=== PATIENT | female | born 1940 | race Caucasian/White ===

== ENCOUNTER 2025-04-23 10:34 | Emergency (ER) | payer MEDICARE, OTHER, SELFPAY ==
[2025-04-23 10:37] VITALS: BP 158/83; PULSE 82; RESP 20; TEMP 36.3; O2SAT 95; BMI 27.5
--- NOTE | 2025-04-23 10:48 | ED.FALL ---
HPI - Fall General Time Seen by Provider: 10:48 Date Seen: 04/23/25 Chief Complaint: Fall/Minor Trauma Stated Complaint: fell on Sat- having pain on right side Time Seen by Provider: 04/23/25 10:36 Source: patient and RN notes reviewed Mode of arrival: ambulatory Limitations: no limitations History of Present Illness HPI Narrative: This 84-year-old female is coming to the ER of her own accord with complaint of right chest wall pain. She has very poor balance, has done physical therapy. She states her physical therapist actually lives down the road from her and will check on her couple times a week. She fell on Wednesday, she actually notes she fell twice. Once she tripped, her foot was out the side and got caught. The 2nd time she fell as when she injured herself, she was leaning forward to put something back and lost her balance, she fell on the vacuum on her right side. She has been taking Tylenol, it hurts some with breathing, definitely hurts with movement. She is not short of breath. She is anticoagulated with warfarin and is on Dilantin as well. States she can not take NSAIDs. She has no headache, did not hit her head, no neck or back pain. No abdominal pain. She has no pain in her extremities. It is simply the right chest wall pain that is hurting her. Related Data Home Medications ?Medication ?Instructions ?Recorded ?Confirmed Dilantin 04/23/25 Maxzide 04/23/25 atorvastatin 04/23/25 losartan 04/23/25 potassium 04/23/25 warfarin 04/23/25 Previous Rx's ?Medication ?Instructions ?Recorded oxycodone 5 mg tablet 2.5 mg (1/2 x 5 mg) PO QHS PRN 04/23/25 pain #7 tabs Allergies Allergy/AdvReac Type Severity Reaction Status Date / Time prochlorperazine (From Allergy Severe Verified 04/23/25 10:43 Compazine) Review of Systems Status of ROS: Reports: 6 or more systems reviewed and unremarkable except as noted in History and below [facility] PFS Social History Smoking Status: Never smoker How often do you have a drink containing alcohol: never How often do you have six or more drinks on one occasion: Never AUDIT-C Alcohol total score: 0 Non-prescribed substance use: denies use Exam Const: Vital Signs, click to edit/add: Vital Signs - 24 hr 04/23/25 10:37 04/23/25 11:28 04/23/25 13:08 Temperature 97.3 F L Pulse Rate 80 Pulse Rate [Pulse Oximeter] 82 Respiratory Rate 20 16 Blood Pressure 140/72 H Blood Pressure [Ri ght Upper Arm] 158/83 H Pulse Oximetry 95 92 95 Oxygen Delivery Me thod Room Air Room Air Brian is an 84-year-old female that is alert, interactive, no apparent distress. She is well-kept, sitting in chair. Pupils are equal round reactive, sclera clear, face and head atraumatic. She is nontender over her cervical spine as well as the entirety of her spine. No traumatic change or bruising noted on her back. She is tender over the right posterolateral chest wall but no crepitus or step-off noted, again no traumatic change. Lungs are clear, good air entry, no wheezing crackles, no tachypnea, no accessory muscle use. CV is regular, no murmur noted, normal S1-S2. She is nontender over the clavicles and shoulders, no pain with mobilization of her upper extremities. Abdomen is soft, nontender, nondistended, no masses organomegaly appreciated. She has no complaints of pain in her pelvis or lower extremities. Documenting provider has reviewed patient's vital signs: yes Course Course ED Course: This is an 84-year-old female anticoagulated with Coumadin with right chest wall pain. The concern for rib fractures is certainly present. Will be doing CT with IV contrast, will check baseline labs including an INR and CBC. She has potential for significant trauma based on her age in anticoagulation. The fall was 2 days ago and thus makes severe trauma unlikely. Still would like to be aware if there is any bleeding or chest wall contusion, certainly suspect rib or rib fractures. She has no spinal complaints and is nontender on palpation of her spine. She will be monitored on pulse oximetry while here. May need to address further pain complaints and will do so guiding by a imaging and lab evaluation. Reevaluation(s) Time of Reevaluation #1: 12:06 Reevaluation #1: Patient complaining of pain, will try 2.5 mg oral oxycodone as a trial does and see if patient tolerates this, see if this is enough to help with pain. Want to minimize side effects but treat pain. Time of Reevaluation #2: 13:15 Reevaluation #2: Did bring patient CT report in, we discussed that there were no traumatic changes noted. There were incidental findings but he did not get a chance to talk to her at this point, was called out to talk to the neurologist regarding a different patient. The oxycodone has helped her. She is taking max dose Tylenol that she can, cannot take NSAIDs. Reviewed with her that I typically do not give narcotics for non fracture type injury but she is limited. She is wondering if she can just take a small dose of the oxycodone at bedtime. She seems to be quite lucid and has gotten some relief from the 2.5 mg of oxycodone. She is comfortable doing Tylenol during the day, will send in a few tablets of oxycodone at night. Did discuss the risks and benefits and certainly reviewed increased fall risk. Her is present at time of discharge. 1:30 p.m.: Did go back to talk to them after I finished my phone call with the neurologist for another patient. She had a question about some of the lung calcification, we discussed this was likely from prior infections. Was not in the vessels, was small punctate calcifications in the lungs. She has had her thyroid ultrasound did for the nodule before, she was aware of the hiatal hernia, does not seem to be symptomatic from the hiatal hernia on questioning. She will take this CT report back to her primary to make sure that there is no further follow-up needed for the thyroid. Vital Signs Vital signs: Initial Vital Signs Temperature 97.3 F L 04/23/25 10:37 Temperature Source Temporal Artery Scan 04/23/25 10:37 Pulse Rate 82 04/23/25 10:37 Respiratory Rate 20 04/23/25 10:37 Blood Pressure 158/83 H 04/23/25 10:37 Blood Pressure Mean 108 H 04/23/25 10:37 Blood Pressure Position Sitting 04/23/25 10:37 Pulse Oximetry 95 04/23/25 10:37 Oxygen Delivery Method Room Air 04/23/25 10:37 Vital Signs Temperature 97.3 F L 04/23/25 10:37 Pulse Rate 82 04/23/25 10:37 Respiratory Rate 20 04/23/25 10:37 Blood Pressure 158/83 H 04/23/25 10:37 Pulse Oximetry 95 04/23/25 10:37 Oxygen Delivery Method Room Air 04/23/25 10:37 Temperature 97.3 F L 04/23/25 10:37 Pulse Rate 80 04/23/25 13:08 Respiratory Rate 16 04/23/25 13:08 Blood Pressure 140/72 H 04/23/25 13:08 Pulse Oximetry 95 04/23/25 13:08 Oxygen Delivery Method Room Air 04/23/25 13:08 Medications Administered Medications: Discontinued Medications Generic Name Dose Route Start Last Admin Trade Name Freq PRN Reason Stop Dose Admin Oxycodone HCl 2.5 mg 04/23/25 12:05 04/23/25 12:24 Oxycodone 5 Mg Tablet PO 04/23/25 12:06 2.5 mg ONCE ONE Administration - Fall Lab Data Attestation: I reviewed the patient's lab results. Labs: Lab Results 04/23/25 04/23/25 Range/Units 10:54 11:20 WBC 5.74 (4.50-11.00) K/uL RBC 4.93 (4.00-5.20) m/uL Hgb 15.8 (12.0-16.0) gm/dL Hct 46.3 (33.0-51.0) % MCV 94 (80-100) fL MCH 32 (26-34) pg MCHC 34 (32-36) gm/dL RDW Coeff of Mady 12.6 (11.5-15.5) % Plt Count 202 (140-440) K/uL Neut % (Auto) 60.0 (42.0-72.0) % Lymph % (Auto) 27.2 (20-44) % [place] % (Auto) 10.6 (0.0-11.0) % Eos % (Auto) 1.7 (0.0-7.0) % Baso % (Auto) 0.3 (0.0-3.0) % Neut # (Auto) 3.44 (1.7-7.0) K/uL Lymph # (Auto) 1.56 (0.90-2.90) K/uL [place] # (Auto) 0.60 (0.00-0.90) K/UL Eos # (Auto) 0.10 (0.00-0.50) K/uL Baso # (Auto) 0.02 (0.00-0.30) K/uL Abs Immat Gran (auto) 0.01 (0.00-0.30) K/uL Imm/Tot Granulo (auto) 0.2 % INR 1.72 H (0.91-1.10) Sodium 134 L (135-149) mmol/L Potassium 3.6 (3.6-5.1) mmol/L Chloride 100 (96-114) mmol/L Carbon Dioxide 27 (20-32) mmol/L Anion Gap 7 (7-15) mEq/L BUN 12 (7-30) mg/dL Creatinine 0.6 (0.5-1.5) mg/dL Estimated Creat Clear 36.81 Estimated GFR 89 ml/min Glucose 125 H (60-115) mg/dL Calcium 9.4 (8.4-10.6) mg/dL Total Bilirubin 0.4 (0.1-1.5) mg/dL AST 33 (12-35) U/L ALT 35 (4-35) U/L Alkaline Phosphatase 101 (40-150) U/L Total Protein 8.0 (6.0-8.3) g/dL Albumin 4.2 (3.3-5.0) g/dL POC Creatinine 0.7 (0.6-1.3) mg/dl Imaging Data CT scan - chest: Attestation: I have reviewed the pertinent imaging results. Radiologist's impression: Patient: BRIAN MACHADO Facility:?[facility] Patient ID:?[id number] Site Patient ID:?[id number]. Site :?[id number] Study:?CT-Chest w/ 75cc [id number]/11/2025 12:18:29 PM Ordering Physician:Clive Jones Final Report: INDICATION: Chest wall pain TECHNIQUE: CT chest with 75 mL Isovue 370 IV contrast. COMPARISON: None. FINDINGS: Lungs and pleura: Innumerable punctate calcifications throughout the periphery of both lungs most pronounced in lower lobes, likely sequelae of prior insult. No suspicious nodules. Curvilinear atelectasis in the dependent lower lobes. No focal consolidation, pleural effusion, or pneumothorax. Heart and vasculature: Heart size is normal. Thoracic aorta and pulmonary artery are normal in caliber. Lymph nodes/mediastinum: No enlarged lymph nodes by size criteria. Large hiatal hernia. Chest wall: No masses. Lower neck: Right thyroid lobe nodule measuring up to 1.6 cm (2:10) with peripheral calcification. Upper abdomen: Unremarkable. No acute or significant abnormality. Bones: No aggressive osseous lesions. [id number] degenerative changes of the spine. IMPRESSION: 1. No acute or significant CT abnormality to explain the queried chest wall pain. 2. Right thyroid lobe nodule measuring up to 1.6 cm. Recommend nonemergent thyroid ultrasound if not already performed. 3. Large hiatal hernia. Please note that all CT scans at this facility use dose modulation, iterative reconstruction, and/or weight-based dosing when appropriate to reduce radiation dose to as low as reasonably achievable. Dictated by Oliver Castillo MD @ 04/23/2025 12:45:40 PM (Electronic Signature) Discharge Plan Discharge Clinical Impression: Right-sided chest wall pain Fall Qualifiers: Encounter type: initial encounter Qualified Code(s): W19.XXXA - Unspecified fall, initial encounter Patient Disposition: Home, Self-Care Condition: Stable Instructions: Fall Prevention for Older Adults (ED), Chest Wall Pain (ED) Additional Instructions: INR/protime today was 1.72. Please contact your clinic or Coumadin nurse to give them this value, they can give you further recommendations for your medication dosing. I request that you follow-up with your primary care provider within the next week, bring CT report with. You will need possible further evaluation if your thyroid has never been ultrasounded before, please give the CT report to your primary care provider. Continue with Tylenol per your dosing that you are safe to take per your primary care provider. I have written for a few tablets of oxycodone to be used at bedtime to help you sleep. Your risk for falls does increase their radically with use of narcotics, get up carefully if you have 2 in the night after using this. Narcotics can also be constipating, may need to use MiraLax and or senna to control bowels while on the narcotics. Activity Level: Activity as Tolerated Prescriptions: New oxycodone 5 mg tablet 2.5 mg PO QHS PRN (Reason: pain) Qty: 7 0RF No Action warfarin Dilantin losartan Maxzide potassium atorvastatin Follow Up/Referrals: Provider,Not a Local [Primary Care Provider, Family Practice] Stand Alone Forms: MyHealth Info Instructions
--- NOTE | 2025-04-23 10:54 | CRLHL7_ITS ---
For Patients: As a result of the Century Cures Act, medical imaging exams and procedure reports are released immediately into your electronic medical record. You may view this report before your referring provider. If you have questions, please contact your health care provider. INDICATION: Chest wall pain TECHNIQUE: CT chest with 75 mL Isovue 370 IV contrast. COMPARISON: None. FINDINGS: Lungs and pleura: Innumerable punctate calcifications throughout the periphery of both lungs most pronounced in lower lobes, likely sequelae of prior insult. No suspicious nodules. Curvilinear atelectasis in the dependent lower lobes. No focal consolidation, pleural effusion, or pneumothorax. Heart and vasculature: Heart size is normal. Thoracic aorta and pulmonary artery are normal in caliber. Lymph nodes/mediastinum: No enlarged lymph nodes by size criteria. Large hiatal hernia. Chest wall: No masses. Lower neck: Right thyroid lobe nodule measuring up to 1.6 cm (2:10) with peripheral calcification. Upper abdomen: Unremarkable. No acute or significant abnormality. Bones: No aggressive osseous lesions. [id number] degenerative changes of the spine. IMPRESSION: 1. No acute or significant CT abnormality to explain the queried chest wall pain. 2. Right thyroid lobe nodule measuring up to 1.6 cm. Recommend nonemergent thyroid ultrasound if not already performed. 3. Large hiatal hernia. Please note that all CT scans at this facility use dose modulation, iterative reconstruction, and/or weight-based dosing when appropriate to reduce radiation dose to as low as reasonably achievable. Dictated by Oliver Castillo MD @ 04/23/2025 12:45:40 PM (Electronically Signed)
[2025-04-23 11:28] VITALS: O2SAT 92
[2025-04-23 11:33] LABS: Creatinine, Point-of-Care* 0.7 mg/dl (0.6-1.3)
[2025-04-23 11:36] LABS: Hematocrit 46.3 % (33.0-51.0); Hemoglobin* 15.8 gm/dL (12.0-16.0); Immature Granulocytes Abs Auto 0.01 K/uL (0.00-0.30); Immature Granulocytes Pct Auto 0.2 %; Lymphocytes Absolute Auto 1.56 K/uL (0.90-2.90); Mean Corpuscular HGB Conc 34 gm/dL (32-36); Mean Corpuscular Hemoglobin 32 pg (26-34); Mean Corpuscular Volume 94 fL (80-100); RDW Coefficient of Variation % 12.6 % (11.5-15.5); Red Blood Count 4.93 m/uL (4.00-5.20); White Blood Count* 5.74 K/uL (4.50-11.00)
[2025-04-23 11:38] LABS: Slide Review Reflex No
[2025-04-23 11:42] LABS: Albumin* 4.2 g/dL (3.3-5.0); Chloride* 100 mmol/L (96-114)
[2025-04-23 11:43] LABS: Potassium* 3.6 mmol/L (3.6-5.1); Sodium* 134 mmol/L (135-149)
[2025-04-23 11:45] LABS: Alanine Aminotransferase* 35 U/L (4-35); Alkaline Phosphatase* 101 U/L (40-150); Anion Gap 7 mEq/L (7-15); Aspartate Amino Transferase* 33 U/L (12-35); Bilirubin Total* 0.4 mg/dL (0.1-1.5); Blood Urea Nitrogen* 12 mg/dL (7-30); Carbon Dioxide* 27 mmol/L (20-32); Creatinine* 0.6 mg/dL (0.5-1.5); Est. Creatinine Clearance* 36.81; Estimated Glomerular Filt Rate 89 ml/min; INR 1.72 (0.91-1.10); Prothrombin Time 21.2 Seconds; Total Protein* 8.0 g/dL (6.0-8.3)
[2025-04-23 11:46] LABS: Calcium* 9.4 mg/dL (8.4-10.6); Glucose* 125 mg/dL (60-115)
--- OUTSIDE RECORDS SUMMARY | 2025-04-23 12:03 | XMS_ITS | Clinical Summary ---
Author Organization [facility] [facility] Address [address] [place] [id number] Care Team Providers Care Infantry Officer Name Role Phone Ruth Gayle Primary Care Provider [phone] [facility], [place] Unavailable Allergies Active Allergy Reactions Criticality Noted Date Comments Atenolol *Unknown - Pt Doesn' t Remember 05/21/2006 Pt can't take with Dilantin Chlorpromazine Throat Swelling/Closing 05/21/20 06 Thorazine Prochlorperazine Throat Swelling/Closing 2005 Lisinopril Throat Swelling/Closing 05/21/2006 Medications cholecalciferol (VITAMIN D) 1,000 unit tablet Take 1,000 Units by mouth once daily. 0 014 Active vit B vmvj-E-SU-iron- vit E 500 mg-400 mcg- 18 mg iron tabIndications: Cerebral artery occlusion with cerebral infarction (HC) Take 1-2 tablets by mouth once daily. 0 015 Active loperamide (IMODIUM A-D) 2 mg capsule Take 4mg by mouth with 1st loose stool, then 2mg with each subsequent loose stool. Max 16 mg in 24 hrs Active hydrocortisone 2.5% creamIndication s:Hemorrhoids, external Apply topically to affected area(s) 2 times daily. 90 g 021 Active lidocaine 5 % topical patchIndication s:Left-sided chest wall pain Apply to intact skin to cover most painful area for max 12hr per 24hr period. 30 Patch 023 Active Graduated Compression StockingsIndica tions:Intermitt ent claudication,Pe jaci edema For personal use. Length: calf Strength: 16-20 mmHg Circumference in cm: to be measured 2 Packet 024 Active alendronate (FOSAMAX) 70 mg tabletIndicatio ns:Osteoporosis , unspecified osteoporosis type, unspecified pathological fracture presence TAKE 1 TABLET ONCE A WEEK IN THE MORNING ON AN EMPTY STOMACH WITH FULL GLASS OF WATER. DO NOT LIE DOWN FOR 1 HOUR 13 Tablet 1 025 Active triamterene-hyd rochlorothiazid e, 37.5-25 mg, (MAXZIDE-25) 37.5-25 mg tabletIndicatio ns:Essential hypertension Take 1 Tablet by mouth once daily in the morning. 90 Tablet 3 025 Active Dilantin Extended 100 mg ER capsuleIndicati ons:Seizure disorder (HC) TAKE 2 CAPSULES ONCE DAILY 180 Capsule 1 025 Active losartan (COZAAR) 50 mg tabletIndicatio ns:Essential hypertension Take 1 Tablet (50 mg) by mouth once daily. 90 Tablet 3 025 Active potassium chloride (KLOR-CON M20) 20 mEq extended-releas e tablet (part/cryst)Ind ications:[place] lemia Take 1 Tablet (20 mEq) by mouth once daily with a meal. 90 Tablet 2 025 Active fluticasone propionate 100 mcg/actuation inhalerIndicati ons:Mild persistent asthma without complication (HC) Inhale 1 Puff by mouth two times daily. 180 Each 3 025 Active cyclobenzaprine 10 mg tabletIndicatio ns:Left-sided chest wall pain TAKE 1 TABLET(10 MG) BY MOUTH THREE TIMES DAILY NEEDED FOR MUSCLE SPASM 20 Tablet 025 Active atorvastatin 20 mg tabletIndicatio ns:Cerebral artery occlusion with cerebral infarction (HC),Anticoagul ation monitoring, INR range 2-3 TAKE 1/2 TABLET(10 MG) BY MOUTH DAILY WITH THE EVENING MEAL 45 Tablet 2 025 Active warfarin (COUMADIN) 2 mg tabletIndicatio ns:Cerebral artery occlusion with cerebral infarction (HC),Anticoagul ation monitoring, INR range 2-3,Ostium secundum type atrial septal defect (HC) Take by mouth 1 mg (2 mg x 0.5) every Mon, Wed, Fri; 2 mg (2 mg x 1) all other days in the evening OR as directed 74 Tablet 025 Active warfarin 2 mg tabletIndicatio ns:Cerebral artery occlusion with cerebral infarction (HC),Anticoagul ation monitoring, INR range 2-3,Ostium secundum type atrial septal defect (HC) TAKE BY MOUTH 1 mg (2 mg x 0.5) every Mon, Wed, Fri; 2 mg (2 mg x 1) all other days IN THE EVENING OR DIRECTED. 025 2024 Discontinued Active Problems Problem Noted Date Diagnosed Date Skin cancer 06/14/2024 Overview (08/21/2024): 06/08/24: right posterior shoulder, BCC nodular and infiltrative: Mohs done 08/21/[address] Ng Intermittent claudication 11/13/2020 Impaired fasting glucose 06/17/2018 HCD (health care directive) 01/27/2017 Overview (01/27/2017): Scanned 07/20/13 OCCLUSION CEREBRAL ARTERY W INFARCT 08/20/2016 Mixed hyperlipidemia 01/15/2016 Mild persistent asthma without complication 12/2015 Anticoagulation monitoring, INR range 2-3 2010 Ostium secundum type atrial septal defect 2007 Seizure disorder 02/15/2007 Overview (01/15/2016): on Dilantin.Stated only at night x 3 ([place]). Essential hypertension 08/10/2006 Osteoporosis, unspecified 08/10/2006 Overview (01/15/2016): S/P Forteo, last DEXA 2007. High risk for colon cancer Resolved Problems Problem Noted Date Diagnosed Date Resolved Date Acute gastroenteritis 11/26/20192020 OCCLUSION CEREBRAL ARTERY W INFARCT 09/12/2013 01/27/2017 OCCLUSION CEREBRAL ARTERY W INFARCT 09/12/2013 07/24/2016 Major depression in complete remission 12/31/2008 11/19/2021 Unspecified cerebral artery occlusion with cerebral infarction 11/07/2007 07/24/2016 HYPOMAGNESIUM 12/18/2006 07/24/2016 Acute venous embolism and th rombosis of deep vessels of distal lower extremity 09/20/20062006 Overview (04/13/2007): left popliteal stopped 04/13/2007 negative factor V leiden and factor II gene mutation history of HRT with DVT Hypopotassemia 08/30/2006 07/24/2016 Other and unspecified hyperlipidemia 08/15/2006 01/24/2024 GREATER TROCHANTERIC BURISITIS 08/15/2006 07/24/2016 Pain in joint, lower leg 08/15/200607/2016 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 08/10/2006 0 05/05/2018 Overview (07/30/2007): right sided complete occlusion Diarrhea 11/13/2020 Encounters Date Type Department Care Team Description 04/23/2025 Nurse Triage [facility] [address] [address] Ruth Gayle PA Back Pain/problem (After a fall) 04/23/2025 Refill [facility] [address] [place] [address] Ruth Gayle PA Refill Request (Dilantin Extended) 04/05/2025 Telephone [facility] [address] [address] Ruth Gayle PA Anticoagulation (Warfarin Rx) 03/31/2025 Refill [facility] [address] [address] Ruth Gayle PA Refill Request (Warfarin) 03/30/2025 10:00 AM CDT Orders Only [facility] [address] [place] [address] [place] <No scans attached> 03/30/2025 Anticoagulation (warfarin) [facility] [address] [facility] [address] [place] [address] Nurse, Jose Carlos Anticoag Anticoagulation 03/30/2025 Travel 03/29/2025 Telephone [facility] [address] [facility] [address] [place] [address] Ruth Gayle PA Appointment 03/27/2025 Telephone [facility] [address] [facility] [address] [place], [place] [address] Ruth Gayle PA Anticoagulation (Supplement Question) 03/23/2025 Nurse Triage [facility] [address], [place] [address] Ruth Gayle PA Back Injury 03/19/2025 Telephone [facility] [address], [place] [phone] Ruth Gayle PA Lab 03/13/2025 Telephone [facility] [address] [facility] [address] [place], [place] [address] Ruth Gayle PA Anticoagulation (Annual re-enrollment /) 03/02/2025 11:45 AM CDT Orders Only [address] [place] [address] [place] Lab 03/02/2025 Anticoagulation (warfarin) [facility] [address] [address] Ruth Gayle PA Anticoagulation 03/02/2025 Travel 02/11/2025 Refill [facility] [address] [facility] [address] [place] [address] Ruth Gayle PA Refill Request (Atorvastatin) 01/31/2025 10:30 AM CDT Orders Only [facility] [address] [facility] [address] [place] [address] Lab, [place] [facility] 01/31/2025 Anticoagulation (warfarin) [facility] [address] [facility] [address] [place] [address] [facility], [place] Anticoagulation 01/31/2025 Travel from Last 3 Months Immunizations Immunization Administration Dates Next Due COVID-19 VACCINE SPIKEVAX (M ODERNA 50MCG/0.5ML) 12YO+ PFS 07/08/2023 COVID-19 vaccine (Pfizer-Bio NTech 30mcg/0.3mL) 12YO+ PATTIE-SUCROSE PF, MDV 02/04/2022 COVID-19 vaccine (Pfizer-Bio NTech 30mcg/0.3mL) PF, MDV 12/05/2020,11/14/2020 Influenza A (H1N1), Inactivated 11/22/2009 Influenza Virus, Unspecified 06/13/2004,06/13/20 03 Influenza, High-dose Inactivated 019,07/23/2016,07/25/2015,2013 Influenza, IIV3 (Age 6-35 mos) 07/06/2011 Influenza, IIV3 (Age >=3 years) 06/21/20 13,07/07/2012,07/06/2011,2009,07/23/2009,08/07/2008,07/12/2007,1 09/27/2005,07/10/2005,07/11/2004, 000,07/15/1999,06/24/1998 Influenza, Inactivated AIIV4 (Age 65+ Years) Preserv Free 07/08/2023,07/21/2022,07/03/2021,2019 Influenza, Inactivated IIV3 (Age 65+ Years) Preserv Free 06/14/2024,07/15/2018,07/02/2017 Pneumococcal Poly,23-Valent (Pneumovax) 11/04/2016,07/10/2005 Pneumococcal conj 13-Valent (Prevnar 13) 01/28/2015 Td (Age >=7 Years) 02/25/1995 Td, Preservative Free (age > = 7 Years) 04/17/2005 Tdap 08/10/2022,02/17/2012 Zoster (Shingrix-RZV, recombinant) 06/01/2019, Zoster (Zostavax-ZVL, live) 07/26/2012 Family History Medical History Relation Name Comments Cancer-colon Brother Heart Disease Father Heart Disease Mother congenital Other Mother blood clots Cancer-breast No Family History Cancer-ovarian No Family History Cancer-prostate No Family History Relation Name Status Comments Brother Father Mother Social History Tobacco Use Types Packs/Day Years Used Date Smoking Tobacco: Never Smokeless Tobacco: Never Tobacco Cessation:Counseling Given: Yes Alcohol Use Standard Drinks/Week Comments Yes 0 (1 standard drink = 0.6 oz pur e alcohol) occassional PHQ-2 Answer Date Recorded PHQ-2 TOTAL SCORE 0 01/24/2024 Social Connections Answer Date Recorded Do you often feel lonely or isolated from those around you? 0 12/18/2024 Financial Resource Strain Answer Date R ecorded Difficulty of Paying Living Expenses 3 12/18/2024 Difficulty of Paying Living Expenses Not on file 12/18/2024 Food Insecurity Answer Date Recorded Do you worry your food will run out before you are able to buy more? 1 12/18/2024 Transportation Needs Answer Date Record ed Does lack of transportation keep you from medica l appointments? 1 12/18/2024 Does lack of transportation keep you from work, meetings or getting things that you need? 1 12/18/2024 Housing Stability Answer Date Recorded What is your housing situation today? 1 12/18/2024 Interpersonal Safety Answer Date Record ed Are you being hit, kicked, p ushed or yelled at (see row info)? No 08/04/2024 Interpersonal Safety Abuse 12 - 18 Not on file 08/04/2024 Interpersonal Safety Ambulatory Vulnerability No t on file 08/04/2024 Utilities Answer Date Recorded Do you have trouble paying f or utilities (for example, heat, electricity, water, phone)? 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 Gender Identity Not on file Sexual Orientation Not on file Obstetrics History Para Term AB IAB SAB Ectopic Multiple Livin g Live Births 2 2 Date Outcome GA Total Labor Labor/2nd/3rd Weight Sex Type Anes PTL Yadira A1 A5 Name Clin Last Filed Vital Signs Vital Sign Reading Time Taken Comments Blood Pressure 118/70 12/18/2024 12:39 PM CDT Pulse 74 12/18/2024 12:39 PM CDT Temperature 36.6 C (97.9 F) 11/26/2024 12:45 PM CDT Respiratory Rate 16 11/26/2024 12:45 PM CDT Oxygen Saturation 94% 11/26/2024 12:45 PM CDT Inhaled Oxygen Concentration - - Weight 69.4 kg (153 lb) 12/18/2024 12:39 PM CDT Height 162.6 cm (5' 4.02) 12/18/2024 12:39 PM C DT Body Mass Index 26.25 12/18/2024 12:39 PM CDT Plan of Treatment Upcoming Encounters Date Type Department Care Team (Late st Contact Info) Description 04/26/2025 3:00 PM CDT Orders Only [facility] [address] [place] [address] [place] 07/16/2025 9:30 AM BIOPHYSICS SCIENTIST Office Visit [facility]ly [facility] [address] [phone] [place] [address] [place], [place] [phone] Health Maintenance Due Date Last Done Comments RSV vaccine for adults or (1 - 1-dose 75+ series) 2016 COVID-19 vaccine series ( season) 2024 07/08/2023, 07/21/2022, 02/04/2022, Additional history exists Medicare Wellness for age 65+ 01/24/2025 01/24/2024, 01/22/2023, 11/19/2021, Additional history exists Depression screening for age 12+ 01/26/2025 01/27/2024, 01/24/2024, 01/22/2023, Additional history exists Influenza Vaccine (#1) 2025 , 07/08/2023, 07/21/2022, Additional history exists BMI (ht and wt on same day) for age 18+ 12/18/2025 12/18/2024, 10/02/2024, 05/10/2024, Additional history exists Tetanus booster 08/10/2032 08/10/2022, 06/02/2012, 04/17/2005, Additional history exists Pneumococcal series for age 50+ Completed 11/04/2016, 01/28/2015, 07/10/2005 Zoster (shingles) series for age 50+ Completed 06/01/2019, 03/31/2019, 07/26/2012 DEXA/DXA scan for age 65+ Completed 2023, 08/22/2018, 01/21/2016, Additional history exists Hepatitis B series for 19+ Aged Out N o longer eligible based on patient's age to complete this topic Goals Goal Patient Goal Type Associated Problems Recent Progress Patient-Stated? Author BLOOD PRESSURE - MAINTAINS BP less than 140/90 Blood Pressure Jojo Smith PA Procedures Procedure Name Priority Date/Time Associated Diagnosis Comments INR,POCT Routine 03/30/2025 9:47 AM CDT OCCLUSION CEREBRAL ARTERY W INFARCT Anticoagulation monitoring, INR range 2-3 INR,POCT Routine 03/02/2025 11:48 AM CDT OCCLUSION CEREBRAL ARTERY W INFARCT Anticoagulation monitoring, INR range 2-3 PROTIME-INR Routine 01/31/2025 10:26 AM CDT OCCLUSION CEREBRAL ARTERY W INFARCT Anticoagulation monitoring, INR range 2-3 XR DXA BONE DENSITY 2 SITES AXIAL Routine 02/03/2024 11:01 AM CDT Osteoporosis, unspecified osteoporosis type, unspecified pathological fracture presence from Last 3 Months or Most Recently Relevant to Health Maintenance Results * (ABNORMAL) INR - POCT [23972.2] - Standing Order (03/30/2025 9:47 AM CDT) Only the most recent of2 resultswithin the time period is included. INR 2.1(H) ratio [facility] Comment: INRs >2.9 may be falsely elevated in patients receiving either unfractionated Heparin or Low Molecular Weight Heparin. Follow up testing in a hospital laboratory may be helpful if clinically indicated. INR results of > or = 5.0 should be verified using the standard venipuncture procedure. Reference Range 0.9-1.1 Moderate-intensity Warfarin Therapy 2.0-3.0 Higher-intensity Warfarin Therapy 3.0-4.0 PROTHROMBIN TIMEP 25.7(H) 10.5 - 13.1 sec [facility] Comment: Point of care fingerstick Prothrombin Time/INR results may vary from venous Prothrombin Time/INR methodologies. Any results exhibiting inconsistency with the patient's clinical status should be repeated using a venous Prothrombin Time/INR method. Blood BLOOD SPECIMEN / Unknown 03/30/2025 9:47 AM CDT 03/30/2025 9:48 AM CDT us [facility] Final Result [facility] [address] [place] [address], [facility] [address] [place] [address] * (ABNORMAL) PROTIME-INR [[id number]] - Standing Order (01/31/2025 10:26 AM CDT) INR 2.2(H) <1.3 01/31/2025 10:46 AM CDT [facility] PROTIME 26.0(H) 10.6 - 12.4 sec 01/31/2025 10:46 AM CDT [facility] Blood BLOOD SPECIMEN / Unknown [facility] / Unknown 01/31/2025 10:26 AM CDT 01/31/2025 10:26 AM CDT Narrative [facility] - 01/31/2025 10:46 AM CDT Therapeutic Range 2.0-3.0 for most anticoagulated patients 2.5-3.5 or 4.0 for high risk patients The INR is only used for patients on stable oral anticoagulant therapy. It makes no significant contribution to the diagnosis or treatment of patients whose Protime is prolonged for other reasons. INR results are increased when heparin levels exceed 1.0 U/mL, which corresponds to an aPTT >125 seconds if the patient is on UFH. us [facility] Final Result [address] [address] * XR DXA BONE DENSITY 2 SITES AXIAL (02/03/2024 11:01 AM CDT) Anatomical Region Laterality Modality Spine, HIPS, HIPL, HIPR Computed Radiography Impressions 02/04/2024 7:04 AM CDT Osteopenia. RECOMMENDATIONS: The National Osteoporosis Foundation recommends pharmacologic treatment for patients with T-scores of -2.5 or less, patients with prior history of fragility fractures, or patients with 10-year probability of greater than 3% at hips or greater than 20% of suffering major osteoporotic fractures. Recommend continued optimization of calcium and vitamin D intake through dietary means and/or supplementation and regular exercise. Tadeo Trevizo M.D. [email or web address] ANTONIA/[email or web address] / Narrative 02/04/2024 7:04 AM CDT For Patients: Results are automatically released to your [employer] account once available, in compliance with federal regulations. This means that you may see your results before your provider has had a chance to review them. Please allow 2-3 business days for your provider to comment on the results. XR DXA Bone Mineral Density (BMD) EXAM LOCATION: [address] [address] PATIENT NAME: Renetta uGerrero DATE OF : 1940 EXAM DATE: 02/03/2024 REQUESTING PROVIDER: Ruth Gayle PA GENDER AT : female HEIGHT: 5 feet 4 inches WEIGHT: 165 pounds MENOPAUSAL STATUS: Postmenopausal RACE/ETHNICITY: White RISK FACTORS: Family History of Osteoporosis, Height Loss, History of Fragility Fracture (at a major site), and White Race CURRENT MEDICATION FOR BONE LOSS: Alendronate (Fosamax) INDICATION: Follow-up of existing osteoporosis COMPARISON DATE(S): 2018 DXA scans are compared to prior studies for a patient only when the two (or more) studies were performed on the same scanner. It is not possible to compare data generated on one scanner to data from another because there are not standards in DXA equipment. This applies even if the two scanners are made by the same hotel maintenance worker. PROCEDURE: Dual-energy x-ray absorptiometry performed with routine technique. Reporting is completed in the form of a T-score. The T-score represents the standard deviation from peak bone mass based on young healthy adult. A Z-score is used for diagnosis in premenopausal women, and for men under the age of 50. FINDINGS: RESULT LUMBAR SPINE L1 - L4 BMD: 0.960 g/cm2 T-Score: - 1.8 Z-Score: - 0.3 Trending: Change from prior in 2018: Decrease 1.3%. RESULTS FEMUR Left femoral neck BMD: 0.772 g/cm2 T-Score: - 1.9 Z-Score: + 0.1 Right femoral neck BMD: 0.728 g/cm2 T-Score: - 2.2 Z-Score: - 0.2 Left total hip BMD: 0.738 g/cm2 T-Score: - 2.1 Z-Score: - 0.2 Right total hip BMD: 0.722 g/cm2 T-Score: - 2.3 Z-Score: - 0.4 Trending: Neck Mean Femur BMD: 0.750 g/cm2 Change from prior in 2018: Decrease 0.8%. WHO criteria: Normal: T-score at or above -1 SD Osteopenia: T-score between -1.1 and -2.4 SD Osteoporosis: T-score at or below -2.5 SD [facility] Final Result from Last 3 Months or Most Recently Relevant to Health Maintenance Insurance MEDICARE PB ONLY MEDICARE PART B HB ONLY MEDICARE PART A HB ONLY FOR LIFE HC MEDICARE PPS FOR LIFE Advance Directives Documents on File Type Date Recorded Patient Thread Singer Expl anation Healthcare Directive 09/25/2021 10:27 AM H EALTHCARE DIRECTIVE 09/17/2021 Healthcare Directive 10/04/2018 7:39 AM Healthcare Directive 07/20/2013 10:57 AM H ealthcare Directive Healthcare Directive 11/18/2006 [facility] CARE [id number] * Full Code (Latest Code Status on File) Date Activated Date Inactivated Comments 11/26/2019 1:46 AM 11/27/2019 5:53 PM * Full Code Date Activated Date Inactivated Comments 12/19/2018 9:24 AM 12/19/2018 1:54 PM * Full Code Date Activated Date Inactivated Comments 06/27/2018 11:34 AM 06/27/2018 4:01 PM * Full Code Date Activated Date Inactivated Comments 08/10/2016 7:33 AM 08/10/2016 11:46 AM * Full Code Date Activated Date Inactivated Comments 11/07/2007 7:50 AM 11/08/2007 2:04 AM Care Teams Infantry Officer Relationship Specialty Start Date End Date Ruth Gayle PA [address] [facility] [address] [place] [address] PCP - General Internal Medicine 07/23/16 [facility] [address] [place] [address] 02/03/23
[2025-04-23 13:08] VITALS: BP 140/72; PULSE 80; RESP 16; O2SAT 95
== END 2025-04-23 13:47 | disposition home or self-care (01) ==
PROVIDERS: Emergency Provider Family Medicine
DX: R07.89 Other chest pain (principal); W01.0XXA Fall on same level from slipping, tripping and stumbling without subsequent striking against object, initial encounter
CPT/HCPCS: 36415; 71260; 80053; 82565; 85025; 85610; 94761; 99284; A9270; Q9967